=== PATIENT | female | born 1995 | race Caucasian/White ===

== ENCOUNTER 2018-04-06 17:45 | Emergency (ER) | payer OTHER ==
[2018-04-06 18:08] VITALS: BP 137/86; PULSE 94; RESP 16; TEMP 98.3
[2018-04-06] MEDS ORDERED: MAG HYDROX/AL HYDROX/SIMETH 30 ML CUP PO PRN (19:34)
--- NOTE | 2018-04-06 19:43 | ED ---
Abdominal Pain HPI - General Chief Complaint: Abdominal Pain Stated Complaint: 14 wks preg/abdominal & chest pain Time Seen by Provider: 04/06/18 19:16 Source: patient Mode of arrival: ambulatory Limitations: no limitations - History of Present Illness Initial Comments: 22-year-old female patient who since the emergency department today with complaints of midepigastric pain that radiates into her chest as well as some mild right sided abdominal discomfort. Patient is 14 weeks G2, P1. Seeing Dr. Lopez outpatient for obstetrical care. Has had initial US confirming IUP. Patient states that symptoms started around 2 PM this afternoon. States that the discomfort to the right side abdomen continued but did resolve until she arrived here in the hospital. Patient describes the pain in her epigastric region as a burning pain, radiating to her back, she thinks this may be related to heartburn. She has not taken any medication for her symptoms. She denies any hematuria, dysuria, urinary frequency, urinary urgency. Patient denies any shortness of breath but states that she feels like she is not able to take a deep breath. Denies any cough, congestion, fever, or chills. Denies any nausea or vomiting. Patient states that she did have some clear vaginal discharge this morning however it was after intercourse. States she is having normal bowel movements. Patient denies any recent rash, back pain , numbness, tingling, dizziness, weakness, headache, visual changes, or any other complaints. - Related Data Home Medications Medication Instructions Recorded Confirmed Metoclopramide HCl [Reglan] 10 mg PO Q6HR PRN 04/06/18 04/06/18 Pnv No.95/Ferrous Fum/Folic AC 1 tab PO DAILY 04/06/18 04/06/18 [ Multivitamin Tablet] Allergies Allergy/AdvReac Type Severity Reaction Status Date / Time No Known Allergies Allergy Verified 04/06/18 19:21 Review of Systems ROS Statement: Those systems with pertinent positive or pertinent negative responses have been documented in the HPI. ROS Other: All systems not noted in ROS Statement are negative. Past Medical History Past Medical History: No Reported History History of Any Multi-Drug Resistant Organisms: None Reported Past Surgical History: No Surgical Hx Reported Past Psychological History: No Psychological Hx Reported Smoking Status: Current every day smoker Past Alcohol Use History: None Reported Past Drug Use History: None Reported General Exam Limitations: no limitations General appearance: alert, in no apparent distress, other (This is a well- developed, well-nourished adult female patient in no acute distress. Vital signs upon presentation are temperature 98.3F, pulse 94, respiration 16, blood pressure 137/86, pulse ox 100% on room air.) Eye exam: Present: normal appearance, PERRL, EOMI. Absent: scleral icterus, conjunctival injection, periorbital swelling ENT exam: Present: normal exam, normal oropharynx, mucous membranes moist Respiratory exam: Present: normal lung sounds bilaterally. Absent: respiratory distress, wheezes, rales, rhonchi, stridor Cardiovascular Exam: Present: regular rate, normal rhythm, normal heart sounds. Absent: systolic murmur, diastolic murmur, rubs, gallop, clicks GI/Abdominal exam: Present: soft, tenderness (Suprapubic tenderness), normal bowel sounds. Absent: distended, guarding, rebound, rigid Neurological exam: Present: alert, oriented X3, CN II-XII intact Psychiatric exam: Present: normal affect, normal mood Skin exam: Present: warm, dry, intact, normal color. Absent: rash Course Vital Signs 04/06/18 18:05 Temperature 98.3 F Pulse Rate 94 Respiratory 16 Rate Blood Pressure 137/86 O2 Sat by Pulse 100 Oximetry Medical Decision Making - Medical Decision Making 22-year-old female patient presents to the emergency department today for evaluation of mild right-sided abdominal pain and midepigastric burning pain. Physical examination did reveal some mild suprapubic abdominal tenderness. No CVA tenderness. Urinalysis was negative for any evidence of infection. heart tones were 162. EKG showed normal sinus rhythm. She had no vaginal bleeding or discharge. Patient did receive Maalox here in the department which did improve her symptoms. Upon reevaluation she is feeling much better. She' ll be discharged home to follow-up with her [employer] for recheck in 1-2 days. Return parameters were discussed in detail. She verbalizes understanding and agreed with this plan. - Lab Data Lab Results 04/06/18 Range/Units 19:48 Urine Color Yellow Urine Appearance Clear (Clear) Urine pH 6.0 (5.0-8.0) Ur Specific Marshall 1.015 (1.001-1.035) Urine Protein Negative (Negative) Urine Glucose (UA) Negative (Negative) Urine Ketones Negative (Negative) Urine Blood Negative (Negative) Urine Nitrite Negative (Negative) Urine Bilirubin Negative (Negative) Urine Urobilinogen <2.0 (<2.0) mg/dL Ur Leukocyte Esterase Negative (Negative) - EKG Data -: EKG Interpreted by Me EKG Comments: EKG obtained at 1956 shows normal sinus rhythm with a sinus arrhythmia, incomplete right bundle branch block. Ventricular rate is 73, OK interval 138, QRS duration 102, QT 384, QTC 423. No evidence of ST elevation or depression. Disposition Clinical Impression: Acid reflux, Abdominal pain during Disposition: HOME SELF-CARE Condition: Good Instructions: Gastroesophageal Reflux Disease (ED), Abdominal Pain in (ED) Additional Instructions: Take Tums or Maalox [id number] as needed for symptom relief. Follow-up with your [employer] for recheck as soon as possible. Return immediately for any new, worsening, or concerning symptoms. Is patient prescribed a controlled substance at d/c from ED?: No Referrals: Jamie Lopez DO [REFERRING] - 1-2 days Time of Disposition: 20:55
[2018-04-06 20:46] LABS: Appearance,Urine Clear (Clear); Bilirubin,Urine Negative (Negative); Blood,Urine Negative (Negative); Color,Urine Yellow; Glucose,Urine (UA) Negative (Negative); Ketones,Urine Negative (Negative); Leukocyte Esterase,Urine Negative (Negative); Nitrite,Urine Negative (Negative); Protein,Urine Negative (Negative); Specific Gravity,Urine 1.015 (1.001-1.035); Urobilinogen,Urine <2.0 mg/dL (<2.0)
== END 2018-04-06 21:04 | disposition home or self-care (01) ==
LOC: EC 17:45
DX: O99.611 Diseases of the digestive system complicating pregnancy, first trimester (principal); K21.9 Gastro-esophageal reflux disease without esophagitis; O99.331 Smoking (tobacco) complicating pregnancy, first trimester; F17.200 Nicotine dependence, unspecified, uncomplicated; Z3A.14 14 weeks gestation of pregnancy
CPT/HCPCS: 81003; 93005; 99284